=== PATIENT | male | born 1965 | race Caucasian/White ===

== ENCOUNTER → 2016-06-13 | Outpatient (CLI) | payer OTHER | LOC: CIMAGING 15:11 | PROVIDERS: ATTEND Internal Medicine Rheumatology | DX: M54.5 Low back pain (principal); M25.561 Pain in right knee | CPT/HCPCS: 72100-PO; 73562-PO ==

== ENCOUNTER 2016-10-26 07:57 | Emergency (ER) | payer OTHER ==
--- NOTE | 2016-10-26 08:09 | CPEKG ---
Heart Rate: 102 RR Interval: 588 P-R Interval: 128 QRSD Interval: 120 QT Interval: 360 QTC Interval: 469 P Leander: 72 QRS Leander: 76 T Wave Leander: 32 EKG Severity - ABNORMAL ECG - EKG Impression: SINUS TACHYCARDIA EKG Impression: IVCD, CONSIDER ATYPICAL RBBB Electronically Signed By: Rosalio Alexis 26-Oct-2016 14:49:21
[2016-10-26] MEDS ORDERED: NS 1,000 ML IV ONE (08:10)
[2016-10-26] MEDS ORDERED: DIAZEPAM 10 MG/2 ML SYR IVP ONE (08:11)
[2016-10-26 08:15] VITALS: RESP 18; TEMP 97.9
--- NOTE | 2016-10-26 08:23 | EDPHY ---
H & P Time Seen by Provider: 10/26/16 08:05 HPI/ROS: HPI Numbness in hands, face and feet. 51-year-old male by private vehicle. He has a history of schizophrenia. He reports for at least the last several months he has had episodes of tingling and numbness involving his face, hands and feet bilaterally and simultaneously. He reports this is often associated with palpitations which she describes as his heart going fast. He reports that he has up to 1 episode of this sensation a day. He reports that last for 20-30 minutes and then resolved on its own. He reports that sometimes he gets better when he eats. He had an episode of this this morning and decided to come to the emergency department to have it investigated. He denies any symptoms at this time. ROS: Constitutional: No fever, no chills. No weakness. Eyes: No discharge. No changes in vision. ENT: No sore throat. No nasal congestion or rhinorrhea. Respiratory: No cough. No shortness of breath. Cardiac: No chest pain, no palpitations. Gastrointestinal: No abdominal pain, no vomiting, no diarrhea. Genitourinary: No hematuria. No dysuria or increased frequency with urination. Musculoskeletal: No back pain. No neck pain. No myalgias or arthralgias. Skin: No rashes. Neurological: No headache. No focal weakness or altered sensation. Past medical history: Schizophrenia. He takes clozapine for this. He also has a history of bilateral hip replacements 6-7 months ago. He was on Xarelto for this but is no longer on this medication. Social history: He is here by himself. He denies any IV drugs or street drugs. No alcohol. Nonsmoker. Physical Exam: General Appearance: Alert, mildly anxious. This patient is responding to questions appropriately and in full sentences. This patient appears well- hydrated and well-nourished. Eyes: Pupils equal and round no pallor or injection. No lid edema, erythema or injection. Respiratory: There are no retractions, lungs are clear to auscultation with good air movement bilaterally. Cardiovascular: Regular rate and rhythm. No murmur. Gastrointestinal: Abdomen is soft and nontender, no masses, bowel sounds normal. No focal tenderness at McBurney's point. No Rodas sign. Neurological: Motor sensory function is grossly intact. Cranial nerves 2 through 12 are normal. Gait is normal. Skin: Warm and dry, no rashes. Musculoskeletal: Neck is supple and nontender. No pain on flexion of the neck. Extremities are symmetrical. All joints range without pain or impingement. Psychiatric: No agitation. No depression. Flat affect. Database: EKG: EKG time is 8:07 a.m.; EKG shows a narrow complex normal sinus rhythm with a ventricular rate of 102. The IN,QT intervals are within normal limits. Interventricular conduction delay noted. Right bundle branch block noted. This is not a Brugada pattern. There are no ST-T wave changes indicative of ischemic or injury pattern. No evidence of right heart strain. No evidence of WPW, hypertrophic cardiomyopathy, a rhythmic right ventricular dysplasia. Interpreted by me. Imaging: Procedures: Emergency department course: non destructive testing engineer shows a sinus rhythm, narrow complex, rate of 92. Vital signs were reviewed. He was mildly tachycardic in triage. Otherwise afebrile and vital signs are normal. IV was placed. He was placed on a wharf tender head. I asked him if he wanted something to help him relax. He declined this. He will be given 1 L of IV normal saline. Electrolytes and CBC will be evaluated for abnormality. He is on clozapine. This presentation may be secondary to a medication reaction. Clozapine has a strong anticholinergic component among other affects. His presentation is consistent with an anxiety reaction. 9:00 a.m., the patient was re-evaluated. He is resting comfortably at this time. He is asymptomatic. Repeat neurologic Assessment is nonfocal. Vital signs were again reviewed and are normal. non destructive testing engineer shows a narrow complex sinus rhythm with ventricular rate of 88. He tells me that he has been on clozapine for about 15 years. His primary care physician is Dr. Andrew Weathers. He feels comfortable going home and I think he is safe for discharge. I will have him follow up with Neurology for re-evaluation and any further management. He is in agreement with this plan. I also discussed that his symptoms may be related to a possible medication reaction. He will talk to his primary care physician, Dr. Andrew Weathers who prescribes this. Return to emergency department precautions were reviewed with him. All of his questions were answered. He was discharged in good condition. Differential Diagnosis: The differential diagnosis on this patient includes but is not limited to medication reaction, anxiety reaction. MS, CVA, Guillain-[place] syndrome, myasthenia gravis unlikely. This represents a partial list of diagnoses considered. These considerations are based on history, physical exam, past history, reassessment and diagnostic testing. Smoking Status: Current every day smoker Constitutional: Initial Vital Signs Temperature (C) 36.6 C 10/26/16 08:12 Heart Rate 104 H 10/26/16 08:12 Respiratory Rate 18 10/26/16 08:12 Blood Pressure 121/95 H 10/26/16 08:12 O2 Sat (%) 92 10/26/16 08:12 O2 Delivery Mode Room Air Allergies/Adverse Reactions: No Allergies [NKDA] Allergy (Verified 10/26/16 08:10) Home Medications: Medication Instructions Recorded Clozapine 10/26/16 Medical Decision Making - Data Points Laboratory Results: Laboratory Results 10/26/16 08:20 10/26/16 08:20 10/26/16 10/26/16 08:20 08:20 WBC 5.91 10^3/uL 10^3/uL (3.80-9.50) RBC 5.24 10^6/uL 10^6/uL (4.40-6.38) Hgb 17.3 g/dL g/dL (13.7-17.5) Hct 50.0 % % (40.0-51.0) MCV 95.4 fL fL (81.5-99.8) MCH 33.0 pg pg (27.9-34.1) MCHC 34.6 g/dL g/dL (32.4-36.7) RDW 12.3 % % (11.5-15.2) Plt Count 157 10^3/uL 10^3/uL (150-400) MPV 9.5 fL fL (8.7-11.7) Neut % (Auto) 58.6 % % (39.3-74.2) Lymph % (Auto) 34.2 % % (15.0-45.0) Barron % (Auto) 5.8 % % (4.5-13.0) Eos % (Auto) 0.0 % L % (0.6-7.6) Baso % (Auto) 0.7 % % (0.3-1.7) Nucleat RBC Rel Count 0.0 % % (0.0-0.2) Absolute Neuts (auto) 3.47 10^3/uL 10^3/uL (1.70-6.50) Absolute Lymphs (auto) 2.02 10^3/uL 10^3/uL (1.00-3.00) Absolute Monos (auto) 0.34 10^3/uL 10^3/uL (0.30-0.80) Absolute Eos (auto) 0.00 10^3/uL L 10^3/uL (0.03-0.40) Absolute Basos (auto) 0.04 10^3/uL 10^3/uL (0.02-0.10) Absolute Nucleated RBC 0.00 10^3/uL 10^3/uL (0-0.01) Immature Gran % 0.7 % % (0.0-1.1) Immature Gran # 0.04 10^3/uL 10^3/uL (0.00-0.10) Sodium 141 mEq/L mEq/L (134-144) Potassium 4.3 mEq/L mEq/L (3.5-5.2) Chloride 106 mEq/L mEq/L (97-110) Carbon Dioxide 25 mEq/l mEq/l (22-31) Anion Gap 10 mEq/L mEq/L (8-16) BUN 9 mg/dL mg/dL (7-23) Creatinine 0.7 mg/dL mg/dL (0.7-1.3) Estimated GFR > 60 Glucose 114 mg/dL H mg/dL (70-100) Calcium 9.3 mg/dL mg/dL (8.5-10.4) Medications Given: Discontinued Medications Diazepam (Valium Injection) 5 mg IVP EDNOW ONE Stop: 10/26/16 08:12 Last Admin: 10/26/16 08:28 Dose: Not Given Sodium Chloride (Ns) 1,000 mls @ 0 mls/hr IV EDNOW ONE; Wide Open PRN Reason: Protocol Stop: 10/26/16 08:11 Last Admin: 10/26/16 08:24 Dose: 1,000 mls Departure - Departure Disposition: Home, Routine, Self-Care Clinical Impression: Paresthesias, Palpitations Condition: Good Instructions: Palpitations (ED), Paresthesia (ED) Additional Instructions: Read and follow provided instructions. Follow-up with your primary care physician in 1-2 days for and consideration of changing your clozapine to a no other medication with a lower side effect profile. Call the office of Dr. Abdulaziz Hull, neurologist, for a follow-up appointment and re-evaluation of your numbness and tingling in her hands and your face. You can see Dr. Hull or 1 of his partners with the neurologist maykel. Explained this is for an emergency department follow-up. Keep yourself well hydrated. Return to the emergency department for worsening symptoms, fever, headache or other serious concerns. Referrals: Abdulaziz Hull MD [Medical Doctor] - As per Instructions ANDREW WEATHERS [Medical Doctor] - As per Instructions
[2016-10-26 08:32] LABS: % IMMATURE GRANULYOCYTES 0.7 % (0.0-1.1); ABSOLUTE IMMATURE GRANULOCYTES 0.04 10^3/uL (0.00-0.10); ADD DIFF? NO; ADD MORPH? NO; ADD SCAN? NO; ATYPICAL LYMPHOCYTE FLAG 0 (0-99); FRAGMENT RBC FLAG 0 (0-99); HEMOGLOBIN 17.3 g/dL (13.7-17.5); LEFT SHIFT FLG 0 (0-99); LIPEMIA HEMOLYSIS FLAG 90 (0-99); MEAN CELL HEMOGLOBIN CONCENTR. 34.6 g/dL (32.4-36.7); MEAN CELL VOLUME 95.4 fL (81.5-99.8); MEAN PLATELET VOLUME 9.5 fL (8.7-11.7); PLATELET CLUMPS FLAG 0 (0-99); PLATELET COUNT 157 10^3/uL (150-400); RED BLOOD CELL COUNT 5.24 10^6/uL (4.40-6.38); RED CELL DISTRIBUTION WIDTH 12.3 % (11.5-15.2)
[2016-10-26 08:45] LABS: ANION GAP 10 mEq/L (8-16); CALCIUM 9.3 mg/dL (8.5-10.4); CARBON DIOXIDE 25 mEq/l (22-31); CHLORIDE 106 mEq/L (97-110); CREATININE 0.7 mg/dL (0.7-1.3); GLOMERULAR FILTRATION RATE > 60; GLUCOSE 114 mg/dL (70-100); POTASSIUM 4.3 mEq/L (3.5-5.2); SODIUM 141 mEq/L (134-144)
[2016-10-26 09:27] VITALS: BP 119/90; PULSE 84; O2SAT 94
== END 2016-10-26 09:21 | disposition home or self-care (01) ==
LOC: CED 07:57
DX: R20.2 Paresthesia of skin (principal); R00.2 Palpitations; F17.200 Nicotine dependence, unspecified, uncomplicated; E86.9 Volume depletion, unspecified
CPT/HCPCS: 80048-PO; 85025-PO